=== PATIENT | male | born 1985 | race Hispanic/Latino ===

== ENCOUNTER 2017-12-25 04:22 | Observation (INO) | payer OTHER ==
[2017-12-25] MEDS ORDERED: Ondansetron HCl/PF 4 MG/2 ML Vial ONE ×2 (05:40→15:08)
[2017-12-25] MEDS ORDERED: Morphine 4 MG/ML VIAL ONE (05:40)
[2017-12-25] MEDS ORDERED: Dextrose 5% in Water 1,000 ML IV PRN (06:08)
[2017-12-25] MEDS ORDERED: Morphine 4 MG/ML VIAL SLOW IVP PRN (06:08)
[2017-12-25] MEDS ORDERED: Ondansetron HCl/PF 4 MG/2 ML Vial IVP PRN ×2 (06:08→13:32)
[2017-12-25] MEDS ORDERED: Dextrose 50% Abboject 50 ML SYRINGE SLOW IVP PRN (06:08)
[2017-12-25] MEDS ORDERED: traMADol HCl 50 MG TAB PO PRN (06:14)
[2017-12-25] MEDS ORDERED: Ibuprofen 600 MG TAB PO SCH (06:15)
[2017-12-25] MEDS ORDERED: Acetaminophen 500 MG TAB PO SCH (06:15)
[2017-12-25] MEDS ORDERED: traMADol HCl 50 MG TAB PO SCH (06:15)
[2017-12-25] MEDS ORDERED: Sodium Chloride 0.9% 1,000 ML IV SCH (06:15)
[2017-12-25 06:44] LABS: #Lymphocytes 1.6 thou/uL (1.20-3.40); #Monocytes 0.6 thou/uL (0.11-0.59); #Neutrophils 11.4 thou/uL (1.40-6.50); %Basophils 0.3 % (0.0-1.0); %Lymphocytes 11.5 % (21.0-51.0); %Monocytes 4.5 % (0.0-10.0); %Neutrophils 83.8 % (42.0-75.0); Hemoglobin 15.5 g/dL (14.0-18.0); Mean Corpuscular HGB CONC 34.1 g/dL (32.0-36.0); Mean Corpuscular Hemoglobin 31.5 pg (27.0-31.0); Mean Corpuscular Volume 92.5 fL (78.0-98.0); Mean Platelet Volume 6.5 fL (7.4-10.4); Platelet Count 280 thou/uL (130-400); RBC Distribution Width 11.7 % (11.5-14.5); Red Blood Cell (RBC) Count 4.92 mill/uL (4.70-6.10); White Blood Cell (WBC) Count 13.6 thou/uL (4.8-10.8)
[2017-12-25 06:57] LABS: ALT (SGPT) 30 U/L (8-55); AST (SGOT) 31 U/L (5-34); Albumin 4.9 g/dL (3.5-5.0); Alkaline Phosphatase 60 U/L (40-150); Anion Gap 15 mmol/L (10-20); BUN (Urea Nitrogen) 7 mg/dL (8.9-20.6); Bilirubin, Total 0.3 mg/dL (0.2-1.2); Calc. Creatinine Clearance 0 mL/min (70-130); Calcium 9.5 mg/dL (7.8-10.44); Carbon Dioxide 21 mmol/L (22-29); Chloride 106 mmol/L (98-107); Estimated GFR-MDRD Greater than 90; Globulin 3.2 g/dL (2.4-3.5); Glucose 124 mg/dL (70-105); Potassium 3.4 mmol/L (3.5-5.1); Protein, Total 8.1 g/dL (6.0-8.3); Sodium 139 mmol/L (136-145)
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
[2017-12-25] MEDS ORDERED: traMADol HCl 50 MG TAB ONE (08:31)
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
[2017-12-25 10:35] VITALS: BMI 27.4
[2017-12-25] MEDS ORDERED: Neomycin-Polymyxin 1 ML AMP ONE (11:47)
[2017-12-25] MEDS ORDERED: Famotidine/PF 20 mg/2ml Vial ONE (11:51)
[2017-12-25] MEDS ORDERED: Midazolam HCl 2 mg/2 ml Vial ONE (11:51)
[2017-12-25] MEDS ORDERED: Fentanyl 100 MCG/2 ML VIAL ONE ×2 (11:51→14:26)
[2017-12-25] MEDS ORDERED: CEFAZOLIN/Water 2 GM/20 ML SYRINGE ONE (12:07)
[2017-12-25] MEDS ORDERED: CEFAZOLIN/Water 2 GM/20 ML SYRINGE SLOW IVP SCH (12:15)
[2017-12-25] MEDS: Famotidine 20 MG TAB PO SCH ×2 (13:06→20:42)
[2017-12-25] MEDS: traMADol HCl 50 MG TAB PO SCH ×2 (13:07→18:41)
[2017-12-25] MEDS: Acetaminophen 500 MG TAB PO SCH ×2 (13:07→18:41)
[2017-12-25] MEDS ORDERED: Promethazine HCl 25 MG/ML VIAL SLOW IVP PRN (13:32)
[2017-12-25] MEDS ORDERED: Promethazine HCl 25 MG/ML VIAL IM PRN (13:32)
[2017-12-25] MEDS ORDERED: Meperidine HCl/PF 25 MG/ML VIAL SLOW IVP PRN (13:32)
[2017-12-25] MEDS: Ibuprofen 600 MG TAB PO SCH ×2 (15:05→20:42)
[2017-12-25] MEDS ORDERED: Succinylcholine Chloride 20 MG/ML 10 ml SYRINGE FS ONE (15:08)
[2017-12-25] MEDS ORDERED: Dexamethasone 20 MG/5 ML VIAL ONE (15:08)
[2017-12-25] MEDS ORDERED: PROPOFOL 200 MG/20 ML VIAL ONE (15:08)
[2017-12-25] MEDS ORDERED: Ketorolac Tromethamine 30 MG/ML VIAL ONE (15:08)
[2017-12-25] MEDS ORDERED: Lidocaine 1% PF 5 ML VIAL ONE (15:08)
--- NOTE | 2017-12-25 15:11 | RAD ---
LEFT TIBIA AND FIBULA TWO VIEWS: History: Intraoperative films. FINDINGS: These films show an intermedullary moisés stabilizing a tibial shaft fracture in good position. There ar e two screws in the distal tibia, one passes through the intermedullary moisés. The second is just below the level of the intermedullary moisés. IMPRESSION: Placement of intermedullary moisés as discussed above. POS: CARLOS
[2017-12-25] MEDS: Aspirin 81 mg Enteric Coated Tablet PO SCH (20:42)
[2017-12-25] MEDS: CEFAZOLIN/Water 2 GM/20 ML SYRINGE SLOW IVP SCH (20:42)
[2017-12-26] MEDS: Acetaminophen 500 MG TAB PO SCH ×3 (00:01→12:38)
[2017-12-26] MEDS: CEFAZOLIN/Water 2 GM/20 ML SYRINGE SLOW IVP SCH (03:30)
[2017-12-26] MEDS: traMADol HCl 50 MG TAB PO SCH ×3 (05:13→12:39)
[2017-12-26] MEDS: Ibuprofen 600 MG TAB PO SCH ×2 (05:14→13:57)
[2017-12-26] MEDS: Aspirin 81 mg Enteric Coated Tablet PO SCH (09:28)
[2017-12-26] MEDS: Famotidine 20 MG TAB PO SCH (09:28)
[2017-12-26 15:43] VITALS: BP 114/76; TEMP 98.5
--- NOTE | 2017-12-26 18:56 | DIS ---
DATE OF ADMISSION: 12/25/2017 DATE OF DISCHARGE: 12/26/2017 ADMISSION DIAGNOSES: 1. Status post mechanical fall. 2. Acute alcohol intoxication. 3. Distal tib-fib fracture. 4. Acute traumatic pain. DISCHARGE DIAGNOSES: 1. Status post mechanical fall. 2. Acute alcohol intoxication. 3. Distal tib-fib fracture. 4. Acute traumatic pain. NUCLEAR MEDICINE SUPERVISOR: Dr. Gusman, Orthopedic Surgery. PROCEDURES: On 12/25/2017, open reduction and internal fixation of the above injury. HOSPITAL COURSE: Meng Vail is a 32-year-old male who presented to [facility] status post m echanical fall. He was found to have the above isolated injuries. The patient was taken for operati ve intervention to his injury on 12/25/2017. Postoperatively, the patient did well. His pain was co ntrolled via p.o. analgesics. He was tolerating a general diet. He was able to mobilize with minima l assistance after working with physical therapy. After discussion with consulting team, patient was deemed medically stable for discharge. DISCHARGE DISPOSITION: Home. DISCHARGE CONDITION: Good. PHYSICAL EXAMINATION: VITAL SIGNS: Temperature 97.9, pulse 83, respirations 18, O2 sat 97% on room air, blood pressure 115 /78. GENERAL: Young male resting in bed in no acute distress. PULMONARY: Normal work of breathing, symmetric rise. CARDIOVASCULAR: Regular rate and rhythm. GASTROINTESTINAL: Abdomen is soft, nontender, nondistended. MUSCULOSKELETAL: Moves all extremities x4. Left lower extremity dressing is clean, dry, and intact. NEUROLOGIC: No focal deficit is noted. DISCHARGE INSTRUCTIONS: Discharge instructions were provided to the patient, who vocalized his under standing. He is to keep his orthopedic dressing clean and dry. He may shower, but should cover the dressing to prevent getting it wet. He is nonweightbearing to the left lower extremity. DISCHARGE MEDICATIONS: The patient was discharged on [id number]-dmo-bbydecy extra strength Tylenol, aspiri n 81 mg p.o. b.i.d., Motrin 600 mg p.o. q.8 hours, Ultram 50 mg q.6 hours p.r.n. for severe breakthro ugh pain. FOLLOWUP APPOINTMENTS: The patient should follow up with his primary care provider as needed. He sh ould follow up with Dr. Gusman from Orthopedic Surgery in approximately 10-14 days. He does not ne ed to follow up formally with Trauma Services and may call our office if any questions. This is mere ly a summary of the patient's hospitalization. For more in depth information, please see his medical record in its entirety.
--- NOTE | 2017-12-27 11:25 | OP ---
DATE OF SURGERY: 12/25/2017 PREOPERATIVE DIAGNOSIS: Left tibial shaft fracture with extension into the distal tibial plafond. POSTOPERATIVE DIAGNOSIS: Left tibial shaft fracture with extension into the distal tibial plafond. SURGICAL PROCEDURE: 1. Closed reduction and percutaneous screw fixation of left intra-articular distal tibia fracture. 2. IM nail stabilization of left tibial shaft fracture. ANESTHESIA: General. SURGEON: Evelio Gusman M.D. WELLNESS GUIDE: Maximiliano Tamayo PA-C. TOURNIQUET TIME: Zero. BLOOD LOSS: 100 mL IMPLANTS: Synthes tibial nail system was used with a 10 x 360 mm nail and a total of 35.0 mm cross l ock screws and a single 4.0 mm locking screw for stabilization of the distal intra-articular extensio n. COMPLICATIONS: None. DRAINS: None. SPECIMEN: None. OUTCOME: Near anatomic alignment. INDICATIONS: The patient is a pleasant 32-year-old gentleman status post fracture of left tibial sha ft with extension into the joint surface. Today, the nature of his injury was discussed with patient including treatment options. Treatment options including nonsurgical management versus open reducti on internal fixation versus intramedullary nail stabilization. We have recommended proceeding with I M nail stabilization. Informed consent has been obtained. I believe all questions answered. DESCRIPTION OF PROCEDURE: The patient was brought to the operating room and a timeout performed foll owed by induction of general anesthesia. Next, patient was positioned on the fracture table with the left injured leg held over a bolster to allow for knee flexion of approximately 80 degrees and then longitudinal traction applied through the foot. The contralateral leg was just held in extension to allow for AP lateral imaging of the left tibia. Next, a sterile prep and drape was performed of the left lower extremity. First, a small anterior incision was made at the distal tibia. This was perfo rmed after C-arm imaging was brought into determine the plane of fracture at the distal tibial articu lar surface. Once the plane was determined at about a 90 degree angle, the drill was passed through a small anterior lateral stab wound across the fracture and into the posterior tibia. Once performed , a depth gauge was inserted and then a 4.0 mm screw was passed through this drill hole stabilizing t he joint surface. Following this, attention was placed at the anterior knee. A midline anterior kne e incision was made. After skin was incised, dissection was carried down to the underlying peritenon of the patellar tendon. This structure was incised in line with the skin incision and reflected med ially and laterally. Next, coming to the medial side of the patellar tendon, a self-retaining retrac tor was inserted in this area to allow for palpation of the proximal tibia anteriorly. A [employer] a wl was used to obtain a starting point at the proximal tibia and then passage of a ball-tipped guidew selvin was passed down the shaft of the tibia across the fracture in the distal tibial metaphysis. Once appropriately aligned as checked with AP and lateral C-arm imaging, measurement off of this guidewir e was used to determine the nail length 360 mm. Next, reaming was started at 8.5 mm and carried up t o 11 mm with kristiter first encountered approximately 10 mm. Next, a 10 x 360 mm nail was passed over the guidewire and driven across the fracture into the distal tibial metaphyseal bone stopping just s hy of the previously placed screw. Once appropriately positioned, an anterior to posterior cross loc k screw was inserted through the same anterior incision made previously. This was then followed by a medial to lateral transverse cross lock screw through a second incision distally. At the completion of this, the nail was backslapped to get compression across the fracture site and then a single prox imal cross lock screw was placed using the appropriate jig. At the completion of this, AP, lateral C -arm images showed near anatomic alignment of fracture and appropriate positioning of the nail. As s uch, the jig was removed from the proximal nail and then the incisions were all irrigated with bulb s yringe followed by closure. The distal anterior wound was closed in layers with 2-0 Vicryl subcutane ously and then bulmaro. The two small stab wounds for cross lock screws were closed with bulmaro and the midline anterior knee incision was closed in layers with 0 Vicryl for the peritenon of the garland lar tendon followed by 2-0 Vicryl and then bulmaro. A Xeroform gauze, Webril, and Jourdan wrap dressing was applied to the leg and then patient was transferred to recovery room in stable condition. There were no complications and he tolerated the procedure well.
== END 2017-12-26 17:19 | disposition home or self-care (01) ==
LOC: ERS 04:22 → SURG A 06:08
PROVIDERS: ADMIT Surgery; ATTEND Surgery
PROC: 0QSH34Z Reposition Left Tibia with Internal Fixation Device, Percutaneous Approach (ICD-10-PCS; principal; 2017-12-25)
PROC: 0QSH04Z Reposition Left Tibia with Internal Fixation Device, Open Approach (ICD-10-PCS; 2017-12-25)
DX: S82.862A Displaced Maisonneuve's fracture of left leg, initial encounter for closed fracture (principal); S82.202A Unspecified fracture of shaft of left tibia, initial encounter for closed fracture; F10.129 Alcohol abuse with intoxication, unspecified; G89.11 Acute pain due to trauma; W19.XXXA Unspecified fall, initial encounter
CPT/HCPCS: 36415; 76001; 80053; 85025; 86850; 86900; 86901; 96361; 96374; 96375; 96376; C1713; C1769; G0378; G0390; G8978-GP-CK; G8979-GP-CK; G8980-GP-CK; J0131; J1100; J1885; J2001; J2250; J2270; J2405; J2704; J3010; S0028